=== PATIENT | male | born 1960 | race African-American/Black ===

== ENCOUNTER 2016-12-19 05:55 | Emergency (ER) | payer OTHER ==
[~2016-12-19] VITALS: Ht 182.9 cm; Wt 81.8 kg
[~2016-12-19 05:55] MED LIST: CITA20TA9 PO; LEVE500T8 PO; LURA80 PO; OXYB15TA PO
[2016-12-19] MEDS ORDERED: SODIUM CHLORIDE 0.9% 1,000 ML IV ONE (06:15)
[2016-12-19 06:16] LABS: BASOPHILS % (AUTO) 4.7 % (0.0-2.0); EOSINOPHILS % (AUTO) 0.1 % (1.0-6.0); HEMATOCRIT 39.1 % (41-53); HEMOGLOBIN 12.7 g/dL (13.5-17.5); LYMPHOCYTES # (AUTO) 1.6 K/uL (1.0-4.8); LYMPHOCYTES % (AUTO) 16.4 % (22.0-44.0); MEAN CORPUSCULAR HEMOGLOBIN 28.5 pg (26.0-34.0); MEAN CORPUSCULAR HGB CONC 32.4 G/dL (31.0-37.0); MEAN CORPUSCULAR VOLUME 88 fL (80-100); MONOCYTES # (AUTO) 0.3 K/uL (0.1-1.0); NEUTROPHILS # (AUTO) 7.6 K/uL (1.8-7.7); NEUTROPHILS % (AUTO) 75.8 % (40.0-70.0); PLATELET COUNT (AUTO) 48 K/uL (150-450); RED BLOOD CELL COUNT(AUTO) 4.44 MIL/uL (4.50-5.90); RED CELL DISTRIBUTION WIDTH 17.2 % (11.5-14.5); WHITE BLOOD COUNT (AUTO) 10.1 K/uL (4.5-11.0)
[2016-12-19 06:25] LABS: CREATININE 1.83 mg/dL (0.60-1.30); POTASSIUM 3.5 mmol/L (3.5-5.1)
[2016-12-19 06:27] LABS: ALBUMIN 4.9 g/dL (3.4-5.0); BILIRUBIN,TOTAL 1.6 mg/dL (0.1-1.0); TOTAL PROTEIN, SERUM 8.1 g/dL (6.4-8.2)
[2016-12-19 06:44] LABS: ADD UA MICROSCOPIC YES; APPEARANCE,URINE CLOUDY (CLEAR); GLUCOSE, URINE (UA) NEGATIVE (NEGATIVE); KETONES,URINE NEGATIVE (NEGATIVE); LEUKOCYTE ESTERASE ,URINE NEGATIVE (NEGATIVE); OCCULT BLOOD,URINE MODERATE (NEGATIVE); PH,URINE 5.5 (5.0-8.0); PROTEIN,URINE SEE CONFIRM (NEGATIVE)
[2016-12-19 06:53] LABS: RBC MORPHOLOGY COMMENT ABNORMAL RBC MORPH
[2016-12-19 06:55] LABS: RBC,URINE 0-2 /HPF (0-2); SQUAMOUS EPITHELIAL CELL,UR Few /LPF (None Seen); SULFOSALICYLIC ACID,URINE 1+ (Negative); WBC,URINE 0-2 /HPF (0-5)
[2016-12-19] MEDS ORDERED: METOPROLOL TARTRATE 5 MG/5 ML VIAL IVP ONE (07:00)
[2016-12-19] MEDS ORDERED: LORazepam 2 MG/ML VIAL ONE (08:13)
[2016-12-19] MEDS ORDERED: LORazepam 2 MG/ML VIAL IVP ONE (08:15)
[2016-12-19] MEDS ORDERED: OxyCODONE HCL/ACETAMINOPHEN 5-325 MG TABLET PO ONE (09:15)
[2016-12-19] MEDS ORDERED: LevETIRAcetam 500 MG TABLET PO ONE (09:15)
[2016-12-19 09:54] VITALS: BP 146/99
== END 2016-12-19 10:33 | disposition home or self-care (01) ==
LOC: EMS 05:56
DX: R56.9 Unspecified convulsions (principal); I11.9 Hypertensive heart disease without heart failure; F17.210 Nicotine dependence, cigarettes, uncomplicated; F12.90 Cannabis use, unspecified, uncomplicated; F19.90 Other psychoactive substance use, unspecified, uncomplicated; F14.90 Cocaine use, unspecified, uncomplicated; Z95.0 Presence of cardiac pacemaker; Z91.041 Radiographic dye allergy status; Z91.012 Allergy to eggs; Z91.011 Allergy to milk products; Z91.018 Allergy to other foods
CPT/HCPCS: 36415; 51702; 70450; 71010; 80053; 80307; 81001; 85025; 87086; 93005; 96361; 96374; 99285; G0482; J2060; J3490; J7030